=== PATIENT | female | born 1945 | race Asian ===

== ENCOUNTER → 2023-07-19 13:56 | Outpatient (REF) | payer MEDICARE, SELFPAY | LOC: DHCBS MAIN 13:56 | PROVIDERS: ATTENDING PHYSICIAN Internal Medicine Cardiovascular Disease; FAMILY PHYSICIAN Physician Assistant Medical | DX: I25.10 Atherosclerotic heart disease of native coronary artery without angina pectoris (principal); I10 Essential (primary) hypertension; R01.1 Cardiac murmur, unspecified | CPT/HCPCS: 93306 ==

== ENCOUNTER → 2023-11-13 12:28 | Outpatient (REF) | payer MEDICARE, SELFPAY | LOC: RAD 12:28 | PROVIDERS: ATTENDING PHYSICIAN Physician Assistant Medical | DX: R22.43 Localized swelling, mass and lump, lower limb, bilateral (principal) | CPT/HCPCS: 93922; 93925 ==

== ENCOUNTER → 2024-01-13 08:16 | Outpatient (REF) | payer MEDICARE, SELFPAY | LOC: RST 08:16 | PROVIDERS: ATTENDING PHYSICIAN Physician Assistant Medical | DX: R13.10 Dysphagia, unspecified (principal) | CPT/HCPCS: 74230; 92611 ==

== ENCOUNTER → 2024-05-19 11:18 | Outpatient (REF) | payer MEDICARE, SELFPAY | LOC: REG 11:18 | PROVIDERS: ATTENDING PHYSICIAN Family Medicine | DX: R09.89 Other specified symptoms and signs involving the circulatory and respiratory systems (principal); R22.43 Localized swelling, mass and lump, lower limb, bilateral | CPT/HCPCS: 71046 ==

== ENCOUNTER → 2024-06-01 07:46 | Outpatient (REF) | payer MEDICARE, SELFPAY | LOC: HWRAD 07:46 | PROVIDERS: ATTENDING PHYSICIAN Family Medicine | DX: R22.43 Localized swelling, mass and lump, lower limb, bilateral (principal) | CPT/HCPCS: 93970 ==

== ENCOUNTER → 2025-02-11 07:17 | Outpatient (REF) | payer MEDICARE, SELFPAY | LOC: RAD 07:17 | PROVIDERS: ATTENDING PHYSICIAN Physician Assistant Medical | DX: R10.13 Epigastric pain (principal) | CPT/HCPCS: 76700 ==

== ENCOUNTER → 2025-04-27 09:57 | Outpatient (REF) | payer MEDICARE, SELFPAY | LOC: PAVMRI 09:57 | PROVIDERS: ATTENDING PHYSICIAN Physician Assistant; FAMILY PHYSICIAN Physician Assistant Medical | DX: M54.16 Radiculopathy, lumbar region (principal) | CPT/HCPCS: 72148 ==